=== PATIENT | female | born 1995 | race Caucasian/White ===

== ENCOUNTER 2022-10-07 09:09 | Emergency (ER) | payer OTHER ==
[~2022-10-07] VITALS: Ht 162.6 cm; Wt 77.1 kg
[2022-10-07] MEDS ORDERED: IMURAN50 MG PO (09:19)
[2022-10-07] MEDS ORDERED: HUMIRA PEN40 MG/0.2 SUBCUTANEO (09:20)
[2022-10-07] MEDS ORDERED: CIPRO500 MG PO (11:01)
[2022-10-07] MEDS ORDERED: PYRIDIUM200 MG PO (11:01)
== END 2022-10-07 11:49 | disposition home or self-care (01) ==
LOC: ER 09:09
DX: R30.0 Dysuria (principal)